=== PATIENT | female | born 1950 | race Caucasian/White ===

== ENCOUNTER 2023-05-28 13:12 | Outpatient (RCR) | payer MEDICARE, OTHER, SELFPAY | END 2023-05-28 23:59 | disposition home or self-care (01) | LOC: RPT 13:12 | PROVIDERS: ATTENDING PHYSICIAN Nurse Practitioner Primary Care | DX: M25.661 Stiffness of right knee, not elsewhere classified (principal); M25.662 Stiffness of left knee, not elsewhere classified; R26.89 Other abnormalities of gait and mobility; M25.673 Stiffness of unspecified ankle, not elsewhere classified; Z73.6 Limitation of activities due to disability | CPT/HCPCS: 97162; 97530 ==

== ENCOUNTER 2023-06-27 10:00 | Outpatient (RCR) | payer MEDICARE, OTHER, SELFPAY | END 2023-06-27 23:59 | disposition home or self-care (01) | LOC: RPT 10:00 | PROVIDERS: ATTENDING PHYSICIAN Nurse Practitioner Primary Care | DX: M25.661 Stiffness of right knee, not elsewhere classified (principal); M25.662 Stiffness of left knee, not elsewhere classified; R26.89 Other abnormalities of gait and mobility; M25.671 Stiffness of right ankle, not elsewhere classified; M25.672 Stiffness of left ankle, not elsewhere classified; Z73.6 Limitation of activities due to disability | CPT/HCPCS: 97010; 97110; 97140 ==

== ENCOUNTER 2023-07-03 12:07 | Outpatient (RCR) | payer MEDICARE, OTHER, SELFPAY | END 2023-07-03 23:59 | disposition home or self-care (01) | LOC: RPT 12:07 | PROVIDERS: ATTENDING PHYSICIAN Nurse Practitioner Primary Care | DX: M25.661 Stiffness of right knee, not elsewhere classified (principal); M25.662 Stiffness of left knee, not elsewhere classified; R26.89 Other abnormalities of gait and mobility; M25.673 Stiffness of unspecified ankle, not elsewhere classified | CPT/HCPCS: 97010; 97110; 97140 ==

== ENCOUNTER → 2023-08-07 10:21 | Outpatient (REF) | payer MEDICARE, OTHER, SELFPAY | LOC: HWCARD 10:21 | PROVIDERS: ATTENDING PHYSICIAN Nurse Practitioner Primary Care | DX: E78.2 Mixed hyperlipidemia (principal) | CPT/HCPCS: 93005 ==

== ENCOUNTER 2023-08-20 10:14 | Outpatient (RCR) | payer MEDICARE, OTHER, SELFPAY | END 2023-08-20 23:59 | disposition home or self-care (01) | LOC: RPT 10:14 | PROVIDERS: ATTENDING PHYSICIAN Nurse Practitioner Primary Care | DX: M25.661 Stiffness of right knee, not elsewhere classified (principal); M25.662 Stiffness of left knee, not elsewhere classified; R26.89 Other abnormalities of gait and mobility; M25.673 Stiffness of unspecified ankle, not elsewhere classified | CPT/HCPCS: 97010; 97110; 97140 ==

== ENCOUNTER 2023-09-10 13:34 | Outpatient (RCR) | payer MEDICARE, OTHER, SELFPAY | END 2023-09-10 23:59 | disposition home or self-care (01) | LOC: RPT 13:34 | PROVIDERS: ATTENDING PHYSICIAN Nurse Practitioner Primary Care | DX: M25.661 Stiffness of right knee, not elsewhere classified (principal); M25.662 Stiffness of left knee, not elsewhere classified; R26.89 Other abnormalities of gait and mobility; M25.672 Stiffness of left ankle, not elsewhere classified; M25.671 Stiffness of right ankle, not elsewhere classified; Z73.6 Limitation of activities due to disability | CPT/HCPCS: 97110; 97140; 97530 ==

== ENCOUNTER → 2023-09-16 06:23 | Day surgery (SDC) | payer MEDICARE, OTHER, SELFPAY | LOC: GI 06:23 | PROVIDERS: ATTENDING PHYSICIAN Specialist | DX: Z12.11 Encounter for screening for malignant neoplasm of colon (principal); K57.30 Diverticulosis of large intestine without perforation or abscess without bleeding; Z86.010 Personal history of colon polyps | CPT/HCPCS: G0105 ==

== ENCOUNTER → 2024-04-21 11:17 | Outpatient (REF) | payer MEDICARE, OTHER, SELFPAY | LOC: HWWDC 11:17 | PROVIDERS: ATTENDING PHYSICIAN Obstetrics & Gynecology; FAMILY PHYSICIAN Internal Medicine Geriatric Medicine | DX: Z12.31 Encounter for screening mammogram for malignant neoplasm of breast (principal) | CPT/HCPCS: 77063; 77067 ==

== ENCOUNTER → 2024-05-25 09:45 | Outpatient (REF) | payer MEDICARE, OTHER, SELFPAY | LOC: HWRAD 09:45 | PROVIDERS: ATTENDING PHYSICIAN Nurse Practitioner Primary Care | DX: E78.2 Mixed hyperlipidemia (principal) | CPT/HCPCS: 75571 ==

== ENCOUNTER 2024-09-05 09:37 | Emergency (ER) | payer MEDICARE, OTHER, SELFPAY ==
[2024-09-05 09:47] VITALS: BP 115/87
--- NOTE | 2024-09-05 10:40 | ED.GENMED ---
History of Present Illness
General
Chief Complaint: Foreign Body Removal
Source: patient
Time Seen by Provider: 09/05/24 10:30
History of Present Illness
History of Present Illness:
This patient is a 74-year-old female presents emergency department to exclude the slim possibility of a piece of glass in her right foot. She describes rarely being barefoot in her bedroom, states the only time she is barefoot is when she is
looking for her flip-flops. She describes 'a long long time ago', that a candle x 2 broke in her bedroom. She thoroughly cleaned the area including vacuuming. Then, about a week or so ago she noticed some discomfort in the plantar aspect of her
right foot near the first MTP. She started to wonder if there could be retained glass there. She denies foreign body sensation, open wound, drainage, redness, warmth, fever, chills, numbness, tingling. She started to push a pin in the area to try
to find a foreign body but found this process too painful. The pain got a little bit more worse today which prompted her visit to the urgent care and she was therefore referred to the emergency department.
Past History
Past History
ED Past Medical History: Hypercholesterolemia
ED Past Surgical History: None
Social History
Tobacco: Non-smoker
Alcohol: None
Drug: None
Personal:
Living: with family
Employment: Employed
Family History
Family History: Other (Noncontributory)
Phy Exam
Physical Exam
Physical Exam:
GENERAL: Alert , in no apparent distress
EYE: pupils equal and round
NECK: Supple, no significant adenopathy.
ENT: o/p clr, mmm.
CARDIAC: Regular rate and rhythm .
LUNGS: Clear breath sounds bilaterally, no acute respiratory distress, no wheezes/rales/rhonchi
ABDOMEN: Soft, without focal tenderness, no r/g
NEUROLOGICAL: Alert and oriented, no focal neuro deficits
SKIN: Warm and dry, skin intact. At dorsal aspect R foot, 1st MTP area, there is a very small area of ?developing wart, and min ttp, no open wound, drainage, warmth, swelling. No fb palpated.
MUSCULOSKELETAL: No edema, well perfused.
PSYCH: Normal and appropriate interaction.
Course
Orders/Labs/Results
Orders:
Orders
09/05/24
Non Vasc Lower Ext Right US [US Non Vasc LOWER Ext RT] Urgent
Comment:
Reason For Exam: attn: R plantar aspect foot, 1st mtp area t/c fb
09/05/24 12:58
Foot, Right 3 View [CR Foot - Right Min 3 Views] Urgent
Comment:
Reason For Exam: pain
Vital Signs
Initial and Last Documented VS:
Initial Vital Signs
Temp Pulse Resp BP Pulse Ox
98.7 F 78 16 115/87 99
09/05/24 09:47 09/05/24 09:47 09/05/24 09:47 09/05/24 09:47 09/05/24 09:47
Last Documented Vital Signs
Temp Pulse Resp BP Pulse Ox
98.7 F 78 16 115/87 99
09/05/24 09:47 09/05/24 09:47 09/05/24 09:47 09/05/24 09:47 09/05/24 09:47
Update Note
Update Note:
Patient presents to the Emergency Department with foot pain
Number and Complexity of Problems Addressed at the Encounter
� Chronic conditions affecting care:
� Acute Exacerbation and/or Progression of Chronic Illness:
� Differential Diagnosis includes: But not limited to developing skin lesions such as warts, foreign body retained, etc. etc.
Amount and/or Complexity of Data to be Reviewed and Analyzed
� I performed an independent evaluation of and my interpretation is:
EKG:
CT:
Xrays:2 mm linear radiopaque foreign body in the plantar soft tissues of the forefoot at the level of the first intermetatarsal space, most compatible with a small shard of glass. Soft tissue swelling of the plantar aspect of
the foot. No acute fracture or dislocation. The joint spaces are maintained. Bipartite medial hallux sesamoid. Mild hallux valgus.
Laboratory Studies:
Other: us Small fluid collection at the area of concern. This may represent a hematoma or abscess. Clinical and laboratory correlation recommended.
� Review of other/old records reveals:
� Clinical information was obtained by an independent historian:
� Prescriptions/Medications Considered but not given:
� Further testing considered but not performed:considered starting prophylactic abx, weghing pros/cons, doubt deep space infx as pt does nt have vijaya out of proprotion ot exam, no creitus/ purulence, systemic illness, risk facors,
joint swelling, et. This did not happen with shoes on, not at high risk for Pseudomonas.
Risk of Complications and/or Morbidity or Mortality of Patient Management
� Social determinants of health affecting care:
� Discussion with other providers (PCP, Hospitalists, Consultants, etc):
� Escalation of care including admission/observation vs risk of discharge considered: Patient resting comfortably. Case discussed with Dr. Sevilla from general surgery, x-ray submitted via [place] text as well as history and
physical. Will see patient in the office this week for management. Given that the suspected chart is not palpable on exam or visible via ultrasound, will defer to surgery for likely extraction. In the meantime, we will begin patient on
antibiotics, recommend keeping area clean, as well as a walking shoe to help take weight off that area, limit weightbearing, etc. Discussed with patient importance of follow-up and reasons to return to the ER. Given copy of ultrasound and x-ray
report.
ED Attending Note
-
Portions of this chart may have been created with voice recognition software.� Occasional wrong word or��sound alike� substitutions may have occurred due to the inherent limitations of voice recognition software.
Discharge Plan
Departure
Patient Disposition: Home (Routine Discharge)
Date of Disposition: 09/05/24
Time of Disposition: 14:18
Patient with high blood pressure during this ER visit?: Yes
Condition: Good
Discharge Problem:
Foreign body foot/toe
Instructions: Foreign Body in Skin (DC), BLOOD PRESSURE
Prescriptions:
New
cephalexin 500 mg capsule
500 mg PO Q6H 7 Days Qty: 28 0RF
No Action
fluticasone propionate 1 SPRAY spray,suspension
1 spray intranasal DAILY
cholecalciferol (vitamin D3) [Vitamin D3] 2,000 UNIT tablet
2,000 unit PO DAILY
Referrals:
Nannette Pires CRNP [Family Provider, Internal Medicine]
Jonah Sevilla MD [Active, Surgical] - 09/07/24
Activity Restrictions/Additional Instructions:
PLEASE CALL THE GENERAL SURGEON NOTED ABOVE ON SATURDAY MORNING FOR FOLLOW-UP. WE STRONGLY SUSPECT THAT YOU HAVE A PIECE OF GLASS RETAINED IN YOUR FOOT. THE SURGEON WILL HELP FURTHER MANAGE IT THIS WEEK. PLEASE MONITOR CLOSELY FOR SIGNS OF
INFECTION SUCH INCREASING PAIN, SWELLING, FEVER, DRAINAGE, STREAKING, OR OTHER WORRISOME SIGNS. IF THIS DEVELOPS, OR IF YOU GET WORSE, PLEASE RETURN TO THE ER IMMEDIATELY!
Interventions
Interventions:
*Risk Screen - Suicide Last Done: 09/05/24 09:47
*General Assessment Last Done: 09/05/24 12:00
*Neglect/Abuse Screening Last Done: 09/05/24 09:47
*ED COVID-19 Vaccine History Last Done: 09/05/24 12:00
Discharge Date and Time
Print Language: INDONESIAN
== END 2024-09-05 14:27 | disposition home or self-care (01) ==
LOC: EMR 09:37
PROVIDERS: EMERGENCY PHYSICIAN Emergency Medicine; FAMILY PHYSICIAN Nurse Practitioner Primary Care
DX: M79.671 Pain in right foot (principal); M79.89 Other specified soft tissue disorders; W45.8XXA Other foreign body or object entering through skin, initial encounter; X58.XXXA Exposure to other specified factors, initial encounter; R03.0 Elevated blood-pressure reading, without diagnosis of hypertension; M20.11 Hallux valgus (acquired), right foot; E78.00 Pure hypercholesterolemia, unspecified; Z88.8 Allergy status to other drugs, medicaments and biological substances
CPT/HCPCS: 99284; 73630; 76882

== ENCOUNTER 2025-02-08 14:34 | Inpatient (IN) | payer MEDICARE, OTHER, SELFPAY ==
[2025-02-08] VITALS (9 sets, daily range): BP systolic 105–145; BP diastolic 59–92; PULSE 78–104; BMI 20.1; BMI 20.4
[2025-02-08 13:01] LABS: Hematocrit 28.3 % (37.0-47.0); Hemoglobin 9.2 g/dL (12.0-16.0); Mean Corp Hgb Conc. 32.5 g/dL (33.0-37.0); Mean Corpuscular Volume 99.3 fL (81.0-99.0); Nucleated Red Blood Cells % 0 %; Platelet Count 208 10^3/uL (130-400); Red Cell Dist. Width 14.5 % (11.5-14.5)
[2025-02-08 13:14] LABS: ALT (SGPT) 17 U/L (0-35); AST (SGOT) 21 U/L (14-36); Albumin 4.0 g/dl (3.5-5.0); Alkaline Phosphatase 49 U/L (38-126); Blood Urea Nitrogen 23 mg/dl (7-17); Calcium 9.5 mg/dl (8.4-10.2); Carbon Dioxide 29 mmol/L (22-30); Chloride 100 mmol/L (98-107); Glucose 105 mg/dl (70-99); Potassium 3.7 mmol/L (3.5-5.1); Sodium 131 mmol/L (135-145); Total Protein 6.2 g/dl (6.3-8.2); eGFR > 60.00
--- NOTE | 2025-02-08 13:42 | ED.GENMED ---
History of Present Illness
<ANDREEA Barr - Last Filed: 02/08/25 14:03>
General
Chief Complaint: Rectal Bleeding
Source: patient
Exam Limitations: none
Time Seen by Provider: 02/08/25 13:18
Nursing documentation reviewed up to this point in time: agreed with
History of Present Illness
History of Present Illness:
74 yr old female presents to the ED for evaluation. Patient was diagnosed with tennis elbow and was started on methylprednisone January 30. On February 01 she started with dark tarry stools and dark tarry stools since. She does feel slightly
weak. She is not on blood thinners. She does have a history of bleeding ulcer in the past from ibuprofen.
Past History
<ANDREEA Barr - Last Filed: 02/08/25 14:03>
Past History
ED Past Medical History: Hypercholesterolemia
ED Past Surgical History: None
Social History
Tobacco: Non-smoker
Alcohol: None
Drug: None
Personal:
Living: with family
Employment: Employed
Family History
Family History: Other (Noncontributory)
Phy Exam
<ANDREEA Barr - Last Filed: 02/08/25 14:03>
General Physical Exam
General Presentation: no apparent distress
General age: appears stated age
General Skin: warm and dry
General Habitus: elderly
General Mental: alert
General Hydration: appears well hydrated
Cardiovascular Exam
Cardiovascular Exam: regular rate/rhythm, no murmur and normal peripheral pulses
Pulmonary Exam
Pulmonary Exam: lungs clear and no respiratory distress
Gastrointestinal Exam
Gastrointestinal Exam: non tender, soft and other (black stool heme positive. )
Neurological Exam
Neurological Exam: alert and oriented x3
Musculoskeletal Exam
Musculoskeletal Exam: full ROM
Skin Exam
Skin Exam: normal color and warm/dry
Psychiatric Exam
Psychiatric Exam: normal mood/affect
Course
<ANDREEA Barr - Last Filed: 02/08/25 14:03>
Orders/Labs/Results
Orders:
Orders
02/08/25 12:43
Complete Blood Count/With Diff Urgent
Comprehensive Metabolic Panel Urgent
02/08/25 13:51
Pantoprazole 80 mg/100 ml Nss [Protonix] 80 mg in 100 ml IV NOW
Pantoprazole [Protonix IV] 40 mg IV NOW STA
02/08/25 14:13
Type+Screen Routine
02/08/25 14:20
Admit/Transfer Patient As Directed
Co-Sign Provider:
Level of Care: Inpatient admission
Assign to:: Telemetry
Physician / Group: htay
Diagnosis: New onset HoB POS black stool - probably UGI origin
Reason for Telemetry: Other
Other Reason for Telemetry: New onset HoB POS black stool - probably UGI origin
Date to Stop Telemetry: 02/10/25
Time to Stop Telemetry: 11:00
Reason for Hospitalization: New onset HoB POS black stool - probably UGI origin
Expected length of stay greater than two midnights?: Yes
ELOS- Estimated Length of Stay in days: 3
I certify the patient meets the requirements for IP care: Yes
02/08/25 14:22
Code Status As Directed
Resuscitation Status: Full Code
02/10/25 11:00
DC Protocol for Telemetry ONCE
Abnormal Lab Results
02/08/25
12:43
RBC 2.85 L 10^6/uL
(4.20-5.40)
Hgb 9.2 L g/dL
(12.0-16.0)
Hct 28.3 L %
(37.0-47.0)
MCV 99.3 H fL
(81.0-99.0)
MCH 32.3 H pg
(27.0-31.0)
MCHC 32.5 L g/dL
(33.0-37.0)
Abs Immat Gran (auto) 0.1 H 10^3/uL
(0-0.05)
Absolute Monos (auto) 0.7 H 10^3/uL
(0.1-0.6)
Immature Gran % 0.8 H %
(0-0.5)
Monocytes % 11.6 H %
(1.7-9.3)
Sodium 131 L mmol/L
(135-145)
BUN 23 H mg/dl
(7-17)
Creatinine 0.5 L mg/dL
(0.6-1.0)
Glucose 105 H mg/dl
(70-99)
Total Protein 6.2 L g/dl
(6.3-8.2)
02/08/25 12:43
02/08/25 12:43
Vital Signs
Initial and Last Documented VS:
Initial Vital Signs
Temp Pulse Resp BP Pulse Ox
98.6 F 103 16 145/79 98
02/08/25 12:31 02/08/25 12:31 02/08/25 12:31 02/08/25 12:31 02/08/25 12:31
Last Documented Vital Signs
Temp Pulse Resp BP Pulse Ox
98.6 F 103 16 145/79 98
02/08/25 12:31 02/08/25 12:31 02/08/25 12:31 02/08/25 12:31 02/08/25 13:43
Screen Stretcher consulted with Physician
Screen Stretcher consulted with physician?: Yes
Name of Physician Consulted: Anupam
<Ruiz Bo, DO - Last Filed: 02/08/25 14:25>
Orders/Labs/Results
Orders:
Orders
02/08/25 12:43
Complete Blood Count/With Diff Urgent
Comprehensive Metabolic Panel Urgent
02/08/25 13:51
Pantoprazole 80 mg/100 ml Nss [Protonix] 80 mg in 100 ml IV NOW
Pantoprazole [Protonix IV] 40 mg IV NOW STA
02/08/25 14:13
Type+Screen Routine
02/08/25 14:20
Admit/Transfer Patient As Directed
Co-Sign Provider:
Level of Care: Inpatient admission
Assign to:: Telemetry
Physician / Group: htay
Diagnosis: New onset HoB POS black stool - probably UGI origin
Reason for Telemetry: Other
Other Reason for Telemetry: New onset HoB POS black stool - probably UGI origin
Date to Stop Telemetry: 02/10/25
Time to Stop Telemetry: 11:00
Reason for Hospitalization: New onset HoB POS black stool - probably UGI origin
Expected length of stay greater than two midnights?: Yes
ELOS- Estimated Length of Stay in days: 3
I certify the patient meets the requirements for IP care: Yes
02/08/25 14:22
Code Status As Directed
Resuscitation Status: Full Code
02/10/25 11:00
DC Protocol for Telemetry ONCE
Abnormal Lab Results
02/08/25
12:43
RBC 2.85 L 10^6/uL
(4.20-5.40)
Hgb 9.2 L g/dL
(12.0-16.0)
Hct 28.3 L %
(37.0-47.0)
MCV 99.3 H fL
(81.0-99.0)
MCH 32.3 H pg
(27.0-31.0)
MCHC 32.5 L g/dL
(33.0-37.0)
Abs Immat Gran (auto) 0.1 H 10^3/uL
(0-0.05)
Absolute Monos (auto) 0.7 H 10^3/uL
(0.1-0.6)
Immature Gran % 0.8 H %
(0-0.5)
Monocytes % 11.6 H %
(1.7-9.3)
Sodium 131 L mmol/L
(135-145)
BUN 23 H mg/dl
(7-17)
Creatinine 0.5 L mg/dL
(0.6-1.0)
Glucose 105 H mg/dl
(70-99)
Total Protein 6.2 L g/dl
(6.3-8.2)
02/08/25 12:43
02/08/25 12:43
Vital Signs
Initial and Last Documented VS:
Initial Vital Signs
Temp Pulse Resp BP Pulse Ox
98.6 F 103 16 145/79 98
02/08/25 12:31 02/08/25 12:31 02/08/25 12:31 02/08/25 12:31 02/08/25 12:31
Last Documented Vital Signs
Temp Pulse Resp BP Pulse Ox
98.6 F 103 16 145/79 98
02/08/25 12:31 02/08/25 12:31 02/08/25 12:31 02/08/25 12:31 02/08/25 13:43
<ANDREEA Barr - Last Filed: 02/08/25 14:03>
MDM/Problems Addressed
Differential Diagnosis Includes:
Not limited to GI bleed/anemia
MDM/Problems Addressed:
Patient is a 74-year-old with dark tarry stool since starting methylprednisone January 30. She has had symptoms for the past 9 days. She has been mildly weak. Her hemoglobin is chronically low here however her last old hemoglobin was from 2011.
With persistent dark tarry stools would recommend admission.
Chronic conditions affecting care:
hx of ulcer disease in the past
<ANDREEA Barr - Last Filed: 02/08/25 14:03>
*Pulse Oximetry
SaO2: 98
Oxygen Mode of Delivery: Room air
Patient hypoxic: no
*Critical Care Note
Total Time (30-74mins, 75-104mins- exclusive of procedures): Not Applicable
ED Attending Note
<ANDREEA Barr - Last Filed: 02/08/25 14:03>
-
Portions of this chart may have been created with voice recognition software.� Occasional wrong word or��sound alike� substitutions may have occurred due to the inherent limitations of voice recognition software.
<Ruiz Bo DO - Last Filed: 02/08/25 14:25>
ED Attending Note
Patient seen and examined by attending physician: Yes
I performed the substantive portion of visit, reviewed & personally made and approve the management plan that is documented in note by myself or ROSANGELA.: Yes
ED Attending Note:
Seen with AUDIT TECH examined independently dark black stools, recently started on steroids had a GI bleed in [address] Nance
Discharge Plan
Departure
Patient Disposition: Admit
Date of Disposition: 02/08/25
Time of Disposition: 14:02
Admit to: Med/Surg
Admit to doctor: hospitalist
Presentation/result/management discussed w/ accepting MD/DO: Hospitalist
Patient with high blood pressure during this ER visit?: Yes
Condition: Fair
Covid-19: Not Applicable
Discharge Problem:
GI bleed
Prescriptions:
No Action
cholecalciferol (vitamin D3) [Vitamin D3] 2,000 UNIT tablet
2,000 unit PO DAILY
cyanocobalamin (vitamin B-12) 1,000 mcg Tablet
1,000 mcg PO DAILY
levothyroxine [Synthroid] 25 mcg Tablet
25 mcg PO DAILY
calcium citrate [Citracal] 200 mg (950 mg) Tablet
400 mg PO DAILY
escitalopram oxalate [Lexapro] 10 mg Tablet
10 mg PO DAILY
rosuvastatin [Crestor] 5 mg Tablet
5 mg PO QPM
PreserVision AREDS 2,148 mcg-113 mg-45 mg-17.4mg Tablet
1 tab PO BID
coQ10 (ubiquinol) 100 mg Capsule
100 mg PO DAILY
Referrals:
Nannette Pires CRNP [Family Provider, Internal Medicine]
Interventions
Interventions:
*Risk Screen - Suicide Last Done: 02/08/25 12:31
*General Assessment Last Done: 02/08/25 12:31
*Neglect/Abuse Screening Last Done: 02/08/25 12:31
*ED- Fall Risk Assessment Last Done: 02/08/25 13:20
*ED COVID-19 Vaccine History Last Done: 02/08/25 13:20
*ED Influenza Vaccine History Last Done: 02/08/25 13:20
ND-Xouxfq-Wiswfvhgef Assessment Last Done: 02/08/25 13:20
ED- Cardiac Assessment Last Done: 02/08/25 13:20
ED- Pulmonary Assessment Last Done: 02/08/25 13:20
Discharge Date and Time
Print Language: MALAGASY
[2025-02-08] MEDS: PROTONIX IV 40 MG IV (14:04)
--- NOTE | 2025-02-08 14:06 | HPS.HSE ---
Family Physician
-
Family Physician: Nannette Pires
Chief Complaint
-
black tarry stool
History of Present Illness
HPI
74F HX HLD, HX PUDz seen at ER:
- currently started methylprednisone 01/30/25 for tennis elbow
- on 02/01/25 she started with dark tarry stools and dark tarry stools since.
- slightly weak
- not on blood thinners.
HX bleeding ulcer in the past from ibuprofen.
Medical History
Past Medical History
Past Medical History: Reports Hypercholesterolemia and Other (Bleeding PUD)
Past Surgical History: Reports None
Social History
Tobacco: Non-smoker
Alcohol: None
Family History
Family History: Not pertinent
Allergies / Home Medications
Allergies reflects when Allergies were last updated in [facility].
Home Medications with original date entered in [facility]
Allergy/Medication List:
Allergies
Allergy/AdvReac Type Severity Reaction Status Date / Time
nitrofurantoin (From Allergy Rash Verified 04/09/20 12:32
Macrobid)
nitrofurantoin Allergy Rash Verified 04/09/20 12:32
macrocrystalline (From
Macrobid)
Home Medications
cholecalciferol (vitamin D3) 50 mcg (2,000 unit) tablet (Vitamin D3) 2,000 unit PO DAILY Supplement 05/08/11
calcium citrate 400 mg PO DAILY Supplement 02/08/25
coQ10 (ubiquinol) 100 mg capsule 100 mg PO DAILY Supplement 02/08/25
cyanocobalamin (vitamin B-12) 1,000 mcg tablet 1,000 mcg PO DAILY Supplement 02/08/25
escitalopram oxalate 10 mg tablet (Lexapro) 10 mg PO DAILY Mental Health/Anxiety 02/08/25
levothyroxine 25 mcg tablet (Synthroid) 25 mcg PO DAILY Thyroid 02/08/25
rosuvastatin 5 mg tablet (Crestor) 5 mg PO QPM High Cholesterol 02/08/25
Vitamins A,C,K-yris-hnlcdx 2,148 mcg-113 mg-45 mg-17.4 mg tablet (PreserVision AREDS) 1 tab PO BID Supplement 02/08/25
Review of Systems
-
Constitutional: Reports No Symptoms
EENT: Reports No Symptoms
Respiratory: Reports No Symptoms
Cardiac: Reports No Symptoms
Abdomen/GI: Reports See HPI and Bloody Stools
: Reports No Symptoms
Musculoskeletal: Reports No Symptoms
Skin: Reports No Symptoms
Neurological: Reports Weakness
Endocrine: Reports No Symptoms
Hematologic/Lymphatic: Reports No Symptoms
Psych: Reports No Symptoms
Physical Exam
Vital Signs
Vital Signs
Temp Pulse Resp BP Pulse Ox
98.6 F 103 16 145/79 98
02/08/25 12:31 02/08/25 12:31 02/08/25 12:31 02/08/25 12:31 02/08/25 13:43
Physical Exam
General: Well Developed, Well Nourished and No Apparent Distress
HEENT: NormoCephalic, Moist mucous membranes and Atraumatic
Respiratory: Clear
Cardiac: S1/S2 and Regular Rhythm; No Murmur or Rub
GI: Soft, Non Tender and Non Distended
Rectal: Black, Hem Positive and Deferred by Provider
Musculoskeletal: No Clubbing, No Cyanosis and No Edema
Skin: No Rash
Neuro: Nonfocal/grossly intact
Psych: Calm
Laboratory Results
-
02/08/25 12:43
02/08/25 12:43
Laboratory Results
Total Bilirubin 0.4 mg/dl (0.2-1.3) 02/08/25 12:43
AST 21 U/L (14-36) 02/08/25 12:43
ALT 17 U/L (0-35) 02/08/25 12:43
Alkaline Phosphatase 49 U/L (38-126) 02/08/25 12:43
Data Reviewed
-
Lab Data: Labs Reviewed by me
Impression/Plan
-
Vital Signs
Temp Pulse Resp BP Pulse Ox
98.6 F 103 16 145/79 98
02/08/25 12:31 02/08/25 12:31 02/08/25 12:31 02/08/25 12:31 02/08/25 13:43
05/11/11 02/08/25
05:48 12:43
Hgb 9.1 L 9.2 L
MCV 91.2 99.3 H
Sodium 131 L
Creatinine 0.5 L 0.5 L
eGFR > 60.00
NO prior hospitalist admission:
ASSESSMENT & PLAN
New onset HoB POS black stool - probably UGI origin
Tachycardia , Normotensive
HX chronic anemia with current Hg 9.2 is at base line
- HX Bleeding PUDz
- Not on blood thinner
- T & S , Blood consented at ER
- agree with PPI gtt
- Trend H & H
- NPO and IVF
- Hold off methylprednisone due to risk of perforation
- Hold of Vit with E
- GI consult
Hypothyroid
- c/w BUSINESS SERVICES CLERK LT4
HLD
- c/w BUSINESS SERVICES CLERK Crestor
DVT Px: SCD
Full code
IP TLM
[2025-02-08] MEDS: PROTONIX 100 IV (14:52)
--- NOTE | 2025-02-08 14:53 | CM ---
Chart reviewed and spoke with patient at bedside
Lives in a condo with her . no steps
Independent with ADLs and ambulation
Drives herself
no DME
PCP Dr. Nannette Pires
RX plan yes
Pharmacy [facility] in [place]
no hx of SNF nor VN
DCP is to go home with no needs
Pt can drive herself home
CM to follow up for any dcp needs
--- NOTE | 2025-02-08 16:22 | CON.GI ---
Addendum entered and electronically signed by Lionel Amaya MD 02/08/25 17:34:
I saw and examined the patient.
The Resident's note was reviewed and I agree with the note.
Comment:
74 year old female with h/o HLD, PUD, hypothyroidism, HLD who p/w melena.
Impression / Rec:
1. Melena - started having taking some steroids for elbow. Denies NSAID use. Has h/o PUD (EGD in 2011). Hgb on admission is at her baseline (9.2). Last BM was today, none since ER. Will need endo eval to r/o recurrent PUD. Plan for EGD
tomorrow.
Original Note:
Consultation
-
Date/Time Consultation Requested: 02/08/25 15:39
Date/Time Consultation Performed: 02/08/25 16:00
Requesting Provider: Dr. Collazo
Performing Provider: Dr. Amaya
Reason for Consultation: new onset HoB POS black stool- probably UGI origin
Medical History
Chief Complaint / HPI
Chief Complaint: black, tarry stools
History of Present Illness:
74yoF PMH HLD, PUD, hypothyroidism, HLD presenting with acute onset of black tarry stools.
Pt reports starting 7 day course of steroids for an elbow injury 01/30/25 with commencement of dark, tarry stools 02/01. She recognized her stools as melena and hoped it would improve once she finished the steroids, but they have persisted. over the
last couple of days, she reports having several BM a day, more than her usual once a day. She also describes feeling lightheaded yesterday into today, prompting her presentation. She reports similar symptoms to when she had a bleeding ulcer in 2013.
Pt reports having prior epigastric pain that has now resolved, reporting it comes and goes.
She last ate food 9am this morning. She reports no other changes in medications. Pt was prescribed celebrex for the elbow and took 1 dose 3 days ago but none since. Denies other NSAID use.
Past Medical History
Past Medical History: HTN, Hypercholesterolemia, Hypothyroidism and Psychiatric
Past Surgical History: Other (EGD for bleeding ulcer 2012, last colonoscopy 2023)
Social History
Tobacco: Non-Smoker
Alcohol: None
Personal:
Allergies / Home Medications
Allergy/AdvReac Type Severity Reaction Status Date / Time
nitrofurantoin (From Allergy Rash Verified 04/09/20 12:32
Macrobid)
nitrofurantoin Allergy Rash Verified 04/09/20 12:32
macrocrystalline (From
Macrobid)
�Medication �Instructions �Recorded
cholecalciferol (vitamin D3) 50 2,000 unit PO DAILY Supplement 05/08/11
mcg (2,000 unit) tablet (Vitamin
D3)
calcium citrate 400 mg PO DAILY Supplement 02/08/25
coQ10 (ubiquinol) 100 mg capsule 100 mg PO DAILY Supplement 02/08/25
cyanocobalamin (vitamin B-12) 1,000 mcg PO DAILY Supplement 02/08/25
1,000 mcg tablet
escitalopram oxalate 10 mg tablet 10 mg PO DAILY Mental 02/08/25
(Lexapro) Health/Anxiety
levothyroxine 25 mcg tablet 25 mcg PO DAILY Thyroid 02/08/25
(Synthroid)
rosuvastatin 5 mg tablet (Crestor) 5 mg PO QPM High Cholesterol 02/08/25
vitamins A,C,[id number]-[id number] 2,148 1 tab PO BID Supplement 02/08/25
mcg-113 mg-45 mg-17.4 mg tablet
(PreserVision AREDS)
Review of Systems
-
History Source: Patient
All other systems: A 12 pt ROS was Negative except as stated above in HPI
Abdomen/GI: Reports Black Stools
Neurological: Reports Dizzy and Weakness
Vital Signs
Temp Pulse Resp BP Pulse Ox
98.4 F 92 12 123/67 98
02/08/25 15:44 02/08/25 15:44 02/08/25 15:44 02/08/25 15:44 02/08/25 15:44
Physical Exam
Exam
General: Well Developed, Well Nourished, No Apparent Distress and Comfortable
HEENT: Normocephalic, Anicteric and Moist Mucous Membranes
Respiratory: Clear and Non Labored Respirations
Cardiac: S1/S2 and Regular Rhythm
GI: Soft, Non Tender and Non Distended
Rectal: Deferred by Provider (performed in ER hem +)
Skin: Warm and Dry
Neuro: AO x 3 and Nonfocal/Grossly Intact
Psych: Calm
Results
WBC 6.3 10^3/uL (4.8-10.8) 02/08/25 12:43
Hgb 9.2 g/dL (12.0-16.0) L 02/08/25 12:43
Hct 28.3 % (37.0-47.0) L 02/08/25 12:43
MCV 99.3 fL (81.0-99.0) H 02/08/25 12:43
Plt Count 208 10^3/uL (130-400) 02/08/25 12:43
Absolute Neuts (auto) 3.5 10^3/uL (1.4-6.5) 02/08/25 12:43
Sodium 131 mmol/L (135-145) L 02/08/25 12:43
Potassium 3.7 mmol/L (3.5-5.1) 02/08/25 12:43
Chloride 100 mmol/L (98-107) 02/08/25 12:43
Carbon Dioxide 29 mmol/L (22-30) 02/08/25 12:43
BUN 23 mg/dl (7-17) H 02/08/25 12:43
Creatinine 0.5 mg/dL (0.6-1.0) L 02/08/25 12:43
Calcium 9.5 mg/dl (8.4-10.2) 11/10/25 12:43
Total Bilirubin 0.4 mg/dl (0.2-1.3) 02/08/25 12:43
AST 21 U/L (14-36) 02/08/25 12:43
ALT 17 U/L (0-35) 02/08/25 12:43
Alkaline Phosphatase 49 U/L (38-126) 02/08/25 12:43
Diagnostic Image Results:
Prior GI Procedures:
EGD: 07/10/2011
Impression: - Normal esophagus.
- Gastric mucosal abnormality in the antrum
characterized by erythema at site of prior ulcer. This
was biopsied.
- A few gastric polyps. This was biopsied.
- Normal examined duodenum
Colonoscopy: 09/16/23
Impression: - Diverticulosis in the sigmoid colon.
- No specimens collected.
Assessment / Plan
-
74yoF PMH HLD, PUD, hypothyroidism, HLD presenting with acute onset of melena concerning for upper GI bleed.
AFVSS. Pt is hemodynamically stable. Prior hx PUD with similar symptoms, likely bleeding ulcer. Recent steroid use. Denies NSAID use beyond 1 dose of celebrex 02/05. Hg 9.2, similar to prior admission.
#Melena
- Plan for endoscopy
- NPO prior to procedure
- Continue IV PPI and IVF
- Serial H and H. Transfuse if Hg<7
-
-
Thank you for consultation and allowing me to participate in the patient's care. Please call the [facility] GI physician during the after hours with any questions or concerns.
[2025-02-08 16:51] LABS: Hematocrit 25.6 % (37.0-47.0); Hemoglobin 8.7 g/dL (12.0-16.0)
[2025-02-08] MEDS: CRESTOR 5 MG PO (17:20)
[2025-02-08] MEDS: NSS 1000 IV (17:20)
[2025-02-08 22:48] LABS: Hematocrit 25.3 % (37.0-47.0); Hemoglobin 8.6 g/dL (12.0-16.0)
[2025-02-09] VITALS (7 sets, daily range): BP systolic 20–133; BP diastolic 52–76; PULSE 76–102; BMI 20.1
[2025-02-09] MEDS: SYNTHROID 25 MCG PO (05:36)
[2025-02-09 08:43] LABS: Hematocrit 27.3 % (37.0-47.0); Hemoglobin 8.8 g/dL (12.0-16.0); Mean Corp Hgb Conc. 32.2 g/dL (33.0-37.0); Mean Corpuscular Volume 100.0 fL (81.0-99.0); Nucleated Red Blood Cells % 0 %; Platelet Count 215 10^3/uL (130-400); Red Cell Dist. Width 14.9 % (11.5-14.5)
[2025-02-09] MEDS: NSS 1000 IV (09:01)
[2025-02-09] MEDS: LEXAPRO 10 MG PO (09:05)
[2025-02-09 09:14] LABS: ALT (SGPT) 16 U/L (0-35); AST (SGOT) 22 U/L (14-36); Albumin 3.8 g/dl (3.5-5.0); Alkaline Phosphatase 50 U/L (38-126); Blood Urea Nitrogen 10 mg/dl (7-17); Calcium 8.9 mg/dl (8.4-10.2); Carbon Dioxide 28 mmol/L (22-30); Chloride 104 mmol/L (98-107); Estimated Creatinine Clearance 77 ml/min; Glucose 115 mg/dl (70-99); Potassium 3.9 mmol/L (3.5-5.1); Sodium 133 mmol/L (135-145); Total Protein 6.0 g/dl (6.3-8.2); eGFR > 60.00
[2025-02-09] MEDS: NSS (PRESERVATIVE FREE) 10 ML IV (11:27)
[2025-02-09] MEDS: PROTONIX IV 40 MG IV (11:27)
[2025-02-09] MEDS: CARAFATE SUSPENSION 1 GM PO (11:28)
--- NOTE | 2025-02-09 12:17 | PN.CDI ---
CDI
- -
CDI:
Physician Documentation Request
Admit Date: 02/08/25 14:34
Dear Doctor Do,
Please review the following and provide your response in the progress notes.
Clinical Indicators:
Pt admitted with Melena /GI bleed
EGD , ' Three non-bleeding cratered gastric ulcers with no stigmata of bleeding were found in the prepyloric region of the stomach. The largest lesion was 3-8 mm in largest dimension...'
Clarify which of the following accurately represents the suspected acuity of the ( gastric ulcers )
Acute
Acute on Chronic
Chronic
Other (please specify)
Use of terms such as suspected, likely, concern for, or probable (associated with a specific diagnosis that is being evaluated, monitored, or treated as if it exists) are acceptable and can be coded in the inpatient setting, when documented at the
time of discharge.
Thank you,
Ember Kimball RN
CDI Specialist
[facility]
Please use your independent medical judgment in providing your response.
--- NOTE | 2025-02-09 12:37 | W.PN.UPDATE ---
Update Note
Progress Note Update
Response to CDI inquiry
Addendum: Her EGD showed 3 acute prepylori ulcers without active bleeding.
--- NOTE | 2025-02-09 12:39 | CM ---
Patient will d/c home today. No needs identified at this time
Patient stated she drove herself here but is unable to drive and trying to work out a solution
IMM verbally reviewed, copy provided, copy on chart
Plan: Home, no needs
--- NOTE | 2025-02-09 13:00 | W.PN.HOSP.TC ---
Addendum entered and electronically signed by Oliver Lugo MD 02/10/25 15:06:
#Hyponatremia
Mild, improved
Original Note:
Today's Communication/Plan
-
Discharge today
Assessment / Plan
Assessment / Plan
#Melena
#Gastric ulcers
Appreciate GI input, 02/09 endoscopy shows 3 nonbleeding gastric ulcers
GI recommends Protonix 40 mg twice a day for 12 weeks, and Carafate 1 g ACHS for 2 weeks
Patient counseled to avoid steroids and NSAIDs
She tolerated her diet, and is medically stable for discharge
Follow-up with PCP in 1 week, as well as GI in the office in 4-6 weeks
#Acute blood loss anemia superimposed on chronic anemia
Hemoglobin stable at 8.8 today, was 8.2 last night
#Hypothyroidism
Continue levothyroxine
Physical Exam
General: No acute distress
HEENT: Normocephalic, Atraumatic, EOMI, MMM
Respiratory: Clear to Auscultation bilaterally
Cardiac: Normal S1/S2, Regular Rate and Rhythm
GI: Soft, Nontender, Nondistended, Normal Bowel Sounds
Extremities: No Clubbing, Cyanosis, or Edema
Neuro: Nonfocal/Grossly Intact
Psych: Calm, Cooperative
Anticipated Discharge: Today
Subjective/Interval History
-
Date of Service: February 09, 2025
Patient seen after her endoscopy. She reports feeling well. Denies lightheadedness, denies dizziness. No abdominal pain. No fever, no vomiting.
Objective Data
-
Labs:
Laboratory Results
02/08/25 02/09/25
22:37 08:08
WBC 5.6
Hgb 8.6 L 8.8 L
Hct 25.3 L 27.3 L
Plt Count 215
Sodium Pending
Potassium Pending
Chloride Pending
Carbon Dioxide Pending
BUN Pending
Creatinine Pending
Glucose Pending
Calcium Pending
Total Bilirubin Pending
AST Pending
ALT Pending
Alkaline Phosphatase Pending
Vital Signs:
Vital Signs
Temp Pulse Resp BP Pulse Ox
98.0 F 76 18 110/59 98
02/09/25 03:30 02/09/25 03:30 02/09/25 03:30 02/09/25 03:30 02/09/25 03:30
I&O
02/08/25 02/09/25 02/10/25
06:59 06:59 06:59
Intake Total 720 / 720
Balance 720 / 720
--- NOTE | 2025-02-09 14:09 | PTCARENOTE ---
Received patient this am AAOX3. Pt NPO with IVF infusing. Pt sent to GI lab for EGD. Pt returned later in Am. Pt assessment was benign. VSS. IVF capped. Pt tolerated diet. Offered no complaints. Made patient comfortable. Cont to assess patient
status.
--- NOTE | 2025-02-09 15:40 | W.DCSUMMARY ---
Discharge Summary
Discharge Data
Date of Admission: 02/08/25
Date of Discharge: 02/09/25
-
Pending Results: No
Hospital Course
Discharge diagnosis:
Gastric ulcers
Melena
Acute blood loss anemia superimposed on chronic anemia
Hypothyroidism
Hyponatremia
Consults: GI
Procedures:
02/09/2025
EGD - Normal esophagus.
- Three small 5-8mm non-bleeding gastric prepyloric ulcers with no
stigmata of bleeding.
- Normal examined duodenum.
- No specimens collected.
Hospital course:
74-year-old female with a past medical history of hypothyroidism and peptic ulcer disease presented with melena. She denies any NSAID use, but has taken steroids recently. She was seen in conjunction with GI, and treated with IV Protonix. She
underwent endoscopy which showed 3 small nonbleeding gastric ulcers. GI recommends pantoprazole 40 mg twice a day for 12 weeks, as well as Carafate 1 g ACHS for 2 weeks. Patient has been counseled to permanently abstain from all [id number]
NSAIDs, as well as aspirin and steroids. She repeats understanding. She tolerated a diet. She is medically stable for discharge. She needs to follow-up with GI in the office in 4-6 weeks, as well as her PCP in 1 week.
Disposition: Home self-care
Discharge planning: Required 37 minutes
Discharge Plan
-
Patient Disposition: Home (Routine Discharge)
Discharge Diagnosis/Procedures: Black stools, 3 gastric ulcers
Condition: Good
Diet: Low Fat and Low Cholesterol
Activity: As tolerated
Driving Restrictions: As prior to admission
Activity Restrictions/Additional Instructions:
Please avoid oral steroids, and all [id number] NSAID medications such as aspirin, ibuprofen, naproxen, Aleve, Motrin, Advil.
These medications will worsen your ulcer.
GI recommends taking pantoprazole 40 mg twice a day for 12 weeks, and Carafate for 2 weeks.
Please follow-up with GI in the office in 4-6 weeks, and your PCP in 1 week.
Referrals:
Dhiraj Nance MD [Active, Gastroenterology]
Referral Note: 4-6 wks for PUD
Nannette Pires CRNP [Family Provider, Internal Medicine] - in one week
Prescriptions:
New
sucralfate 100 mg/mL Suspension
1 g PO ACHS 14 Days Qty: 560 0RF
pantoprazole [Protonix] 40 mg tablet,delayed release (DR/EC)
40 mg PO BID Qty: 60 0RF
Continued
cholecalciferol (vitamin D3) [Vitamin D3] 2,000 UNIT tablet
2,000 unit PO DAILY
cyanocobalamin (vitamin B-12) 1,000 mcg Tablet
1,000 mcg PO DAILY
levothyroxine [Synthroid] 25 mcg Tablet
25 mcg PO DAILY
calcium citrate 200 mg (950 mg) Tablet
400 mg PO DAILY
escitalopram oxalate [Lexapro] 10 mg Tablet
10 mg PO DAILY
rosuvastatin [Crestor] 5 mg Tablet
5 mg PO QPM
PreserVision AREDS 2,148 mcg-113 mg-45 mg-17.4mg Tablet
1 tab PO BID
coQ10 (ubiquinol) 100 mg Capsule
100 mg PO DAILY
Discharge Orders:
Discharge Patient (As Directed); Ordered 02/09/25
Ordered By: Oliver Lugo
Discharge Date and Time
Discharge Date/Time: 02/09/25 14:20
Print Language: JAPANESE
--- NOTE | 2025-02-09 15:48 | PN.CDI ---
CDI
- -
CDI:
Physician Documentation Request
Admit Date: 02/08/25 14:34
Dear Doctor Do,
Please review the following and provide your response in the progress notes.
Clinical Indicators:
Pt admitted with Melena /GI bleed found to have gastric ulcers
Sodium levels are as below/Pt did get IVFs
Laboratory Tests
02/08/25 02/09/25
12:43 08:08
Sodium 131 L 133 L
Based on the above, could you clarify in the progress notes, the appropriate diagnosis, if significant, that supports the above abnormalities and additional evaluation, monitoring and/or treatment rendered:
Hyponatremia
Abnormal lab value
Other ( please specify)
Use of terms such as suspected, likely, concern for, or probable (associated with a specific diagnosis that is being evaluated, monitored, or treated as if it exists) are acceptable and can be coded in the inpatient setting, when documented at the
time of discharge.
Thank you,
Ember Kimball RN
CDI Specialist
[place] [facility]
Please use your independent medical judgment in providing your response.
== END 2025-02-09 14:20 | disposition home or self-care (01) | DRG 378 ==
LOC: 4 EAST ACU 14:34
PROVIDERS: Emergency Medicine; Internal Medicine Gastroenterology; ADMITTING PHYSICIAN Internal Medicine; ATTENDING PHYSICIAN Family Medicine; CONSULT PHYSICIAN Internal Medicine Gastroenterology; EMERGENCY PHYSICIAN Emergency Medicine; FAMILY PHYSICIAN Nurse Practitioner Primary Care
PROC: 0DJ08ZZ Inspection of Upper Intestinal Tract, Via Natural or Artificial Opening Endoscopic (ICD-10-PCS; 2025-02-09)
DX: K25.0 Acute gastric ulcer with hemorrhage (principal); D62 Acute posthemorrhagic anemia; E87.1 Hypo-osmolality and hyponatremia; E03.9 Hypothyroidism, unspecified; Z87.891 Personal history of nicotine dependence
CPT/HCPCS: 80053; 85014; 85018; 85025; 86850; 86900; 86901; 96374; 99285

== ENCOUNTER 2025-03-23 13:04 | Outpatient (RCR) | payer MEDICARE, OTHER, SELFPAY ==
[2025-03-16] MEDS: INJECTAFER 265 MG IV (13:38)
[2025-03-16 13:47] VITALS: BP 114/75
[2025-03-16 14:40] VITALS: BP 127/74
[2025-03-23] MEDS: INJECTAFER 265 MG IV (13:37)
[2025-03-23 13:40] VITALS: BP 127/61
[2025-03-23 14:40] VITALS: BP 134/73
== END 2025-03-24 08:53 | disposition home or self-care (01) ==
LOC: OID 13:04
PROVIDERS: ATTENDING PHYSICIAN Nurse Practitioner Primary Care
DX: D50.9 Iron deficiency anemia, unspecified (principal); K25.9 Gastric ulcer, unspecified as acute or chronic, without hemorrhage or perforation
CPT/HCPCS: 96365; J1439